=== PATIENT | female | born 1945 | race Caucasian/White ===

== ENCOUNTER 2024-03-27 06:33 | Inpatient (IN) | payer MEDICARE, OTHER, SELFPAY ==
[2024-03-26 22:02] VITALS: BP 107/55
[2024-03-26] MEDS: TYLENOL 650 MG PO (22:12)
[2024-03-26] MEDS: ZOFRAN ODT (ORALLY DISINTEGRATING) 4 MG PO (22:12)
[2024-03-26 22:27] LABS: % Basophils 0.3 % (0-2); % Immature Granulocytes 0.3 % (0-0.5); % Lymphocytes 7.4 % (20.5-51.1); % Monocytes 8.2 % (1.7-9.3); % Neutrophils 83.8 % (42.2-75.2); Absolute Lymphocytes 0.5 10^3/uL (1.2-3.4); Absolute Monocytes 0.6 10^3/uL (0.1-0.6); Absolute Neutrophils 6.1 10^3/uL (1.4-6.5); Hematocrit 40.1 % (37.0-47.0); Hemoglobin 14.2 g/dL (12.0-16.0); Mean Corp Hgb Conc. 35.4 g/dL (33.0-37.0); Mean Corpuscular Hgb 32.7 pg (27.0-31.0); Mean Corpuscular Volume 92.4 fL (81.0-99.0); Mean Platelet Volume 9.5 fL (7.4-10.4); Nucleated Red Blood Cells % 0 %; Platelet Count 169 10^3/uL (130-400); Red Blood Cell Count 4.34 10^6/uL (4.20-5.40); Red Cell Dist. Width 12.3 % (11.5-14.5); White Blood Cell Count 7.3 10^3/uL (4.8-10.8)
[2024-03-26 22:39] LABS: ALT (SGPT) 47 U/L (0-35); AST (SGOT) 62 U/L (14-36); Albumin 4.2 g/dl (3.5-5.0); Alkaline Phosphatase 146 U/L (38-126); Blood Urea Nitrogen 10 mg/dl (7-17); Calcium 9.2 mg/dl (8.4-10.2); Carbon Dioxide 24 mmol/L (22-30); Chloride 98 mmol/L (98-107); Glucose 137 mg/dl (70-99); Potassium 4.3 mmol/L (3.5-5.1); Sodium 132 mmol/L (135-145); Total Bilirubin 0.9 mg/dl (0.2-1.3); Total Protein 6.8 g/dl (6.3-8.2); eGFR > 60.00
[2024-03-26 22:40] LABS: Lactic Acid 2.5 mmol/L (0.7-2.0)
--- NOTE | 2024-03-27 01:17 | ED.GENMED ---
History of Present Illness
General
Chief Complaint: Flank Pain
Source: patient and spouse
Exam Limitations: none
Time Seen by Provider: 03/27/24 01:08
Nursing documentation reviewed up to this point in time: agreed with
History of Present Illness
History of Present Illness:
78-year-old female presents emergency department due to nausea, right-sided abdominal pain with radiation of the right flank. She was seen at urgent care in [facility] recently and started on Keflex. She notes she has started a cough
also. History of pyelonephritis.
Past History
Past History
ED Past Medical History: Hypercholesterolemia and Other (Osteoporosis)
ED Past Surgical History: Gynecological (Hysterectomy) and Other (Bilateral breast biopsies)
Social History
Tobacco: Non-smoker
Alcohol: Occasional
Drug: None
Personal:
Living: with family
Employment: Employed
Review of Systems
Review of Systems
Allergies reviewed?: Yes
All Other Systems: Not applicable
Constitutional: Reports fever
EENT: Reports no symptoms
Respiratory: Reports cough
Cardiac: Reports no symptoms
ABD/GI: Reports abdominal pain and nausea
: Reports flank pain
Musculoskeletal: Reports no symptoms
Skin: Reports no symptoms
Neurological: Reports no symptoms
Endocrine: Reports no symptoms
Hematologic/Lymphatic: Reports no symptoms
Psychiatric: Reports no symptoms
Phy Exam
Physical Exam
Physical Exam:
Physical Exam
General: Fever 101.1
Neck: supple. no meningeal signs. normal posterior pharynx
Heart: s1/s2 tachycardia, no murmur. equal radial
pulses.
HEENT: Pupils equal round reactive to light, EOMI
Lungs: no acute respiratory distress. clear bilaterally
Abdomen: normal bowel sounds. not tender. no CVAT
Neuro: alert and oriented. no focal neurological deficits cranial nerves II through XII intact
Skin: no rash
Psychiatric: well kept. interactive and cooperative
Extremities: no edema. no calf tenderness. negative homans. good distal pulses
Sepsis
Sepsis Screening
Sepsis Assessment: Sepsis
Sepsis Screen
Sepsis Screen: Sepsis
Date: 03/27/24
Time: 06:12
Course
Orders/Labs/Results
Orders:
Orders
03/26/24 22:07
Acetaminophen [Tylenol] 650 mg PO NOW STA
Ondansetron Orally Disint [Zofran Odt (Orally Disintegrating)] 4 mg PO NOW STA
03/26/24 22:14
Complete Blood Count/With Diff Urgent
Comprehensive Metabolic Panel Urgent
Lactic Acid Urgent
03/26/24 22:20
Urinalysis Reflex To Culture Urgent
Date Specimen was Collected: 03/26/24
Time Specimen was Collected: 22:20
03/27/24 01:16
CT Abd/pelvis W Iv Cont Urgent
Comment:
Reason For Exam: right flank pain, fever, recent UTI
03/27/24 01:17
IV Insert/Care/Rem.- Treatment PRN
0.9% Sodium Chloride 1000 ml [Nss] 1,000 ml IV BOLUS
03/27/24 02:06
COVID-19 Antigen Urgent
Source: Nasal Swab
Urine Microscopic Reflex Cult Urgent
Urine Culture Urgent
HENRRY Source: U
Specimen Description:
Date Specimen was Collected: 03/26/24
Time Specimen was Collected: 22:20
03/27/24 02:31
Diphenhydramine [Benadryl] 50 mg IV NOW STA
Hydrocortisone Sod Succinate [Solu-Cortef] 200 mg IV NOW STA
03/27/24 03:50
Acetaminophen [Tylenol] 650 mg PO NOW STA
03/27/24 05:08
0.9% Sodium Chloride 1000 ml [Nss] 1,000 ml IV BOLUS
CefTRIAXone [Rocephin] 1,000 mg IV NOW STA
Doxycycline [Vibramycin] 100 mg PO NOW STA
03/27/24 05:09
CR Chest - 2 Views Urgent
Comment:
Reason For Exam: cough, fever
03/27/24 05:33
Blood Culture Q30M
HENRRY Source: Blood/Venous
Specimen Description:
Blood Culture Q30M
HENRRY Source: Blood/Venous
Specimen Description:
Abnormal Lab Results
03/26/24 03/27/24
22:14 02:06
MCH 32.7 H pg
(27.0-31.0)
Absolute Lymphs (auto) 0.5 L 10^3/uL
(1.2-3.4)
Neutrophils % 83.8 H %
(42.2-75.2)
Lymphocytes % 7.4 L %
(20.5-51.1)
Sodium 132 L mmol/L
(135-145)
Glucose 137 H mg/dl
(70-99)
Lactic Acid 2.5 H mmol/L
(0.7-2.0)
AST 62 H U/L
(14-36)
ALT 47 H U/L
(0-35)
Alkaline Phosphatase 146 H U/L
(38-126)
Urine Ketones 1+ A
(Negative)
Ur Occult Blood Reflex 3+ A
(Negative)
Urine RBC >100 A /HPF
(0-2)
Urine Bacteria (Reflex) Moderate A
(Negative)
03/26/24 22:14
03/26/24 22:14
Vital Signs
Initial and Last Documented VS:
Initial Vital Signs
Temp Pulse Resp BP Pulse Ox
101.1 F H 101 20 107/55 97
03/26/24 22:02 03/26/24 22:02 03/26/24 22:02 03/26/24 22:02 03/26/24 22:02
Last Documented Vital Signs
Temp Pulse Resp BP Pulse Ox
100.0 F 101 20 132/53 95
03/27/24 03:43 03/26/24 22:02 03/26/24 22:02 03/27/24 03:00 03/27/24 03:45
MDM/Problems Addressed
Differential Diagnosis Includes:
UTI, pneumonia
MDM/Problems Addressed:
78-year-old female with pneumonia, current treatment for UTI. Admit to hospitalist for IV antibiotics. Lactate mildly elevated. IV fluids given.
*Radiology
Radiology exam reviewed: preliminary read by ED provider (Chest x-ray shows right middle lobe pneumonia) and radiology read reviewed (CT abdomen pelvis shows right middle lobe pneumonia)
*Pulse Oximetry
Patient hypoxic: no
*Critical Care Note
Total Time (30-74mins, 75-104mins- exclusive of procedures): Not Applicable
Patient Management
Social determinants of health affecting care: Living situation and Strong social support
Discussion with other providers: Hospitalist
Escalation/DeEscalation of care consider admission/obs:
Admission indicated
ED Attending Note
-
Portions of this chart may have been created with voice recognition software.� Occasional wrong word or��sound alike� substitutions may have occurred due to the inherent limitations of voice recognition software.
Discharge Plan
Departure
Patient Disposition: Admit
Date of Disposition: 03/27/24
Time of Disposition: 05:10
Admit to: Telemetry
Presentation/result/management discussed w/ accepting MD/DO: Hospitalist
Patient with high blood pressure during this ER visit?: Yes
Condition: Good
Discharge Problem:
Pneumonia involving right lung, Acute UTI
Prescriptions:
No Action
cyclobenzaprine 10 MG tablet
10 mg PO PRN PRN (Reason: pain)
esomeprazole magnesium [Nexium] 20 MG capsule,delayed release(DR/EC)
20 mg PO DAILY
eszopiclone [Lunesta] 3 MG tablet
3 mg PO DAILY
aspirin 81 MG tablet,delayed release (DR/EC)
325 mg PO DAILY
atorvastatin 80 MG tablet
40 mg PO QPM
Zetia 10 mg
10 mg PO 1XD
B12 1,000 mg
1,000 mg subcut (via wearable injectr)
Premarin
1 vaginal
Rx Instructions:
2 times a week
Referrals:
Leanna Abebe DO [Family Provider] -
Interventions
Interventions:
*Risk Screen - Suicide Last Done: 03/27/24 02:00
*General Assessment Last Done: 03/26/24 22:02
*Neglect/Abuse Screening Last Done: 03/27/24 02:00
ED- Fall Risk Assessment Last Done: 03/27/24 02:00
*ED COVID-19 Vaccine History Last Done: 03/27/24 02:00
TO-Ahwtym-Eupnbfbcoe Assessment Last Done: 03/27/24 02:00
ED-Female Genitourinary Assessment Last Done: 03/27/24 02:00
Discharge Date and Time
Print Language: THAI
[2024-03-27 01:59] VITALS: BMI 23.0
[2024-03-27 02:00] VITALS: BP 107/51
[2024-03-27] MEDS: NSS 1000 IV ×4 (02:12→19:29)
[2024-03-27 02:19] LABS: Urine Albumin Trace (Neg - Trace); Urine Bilirubin Negative (Negative); Urine Character Clear (Clear); Urine Color Yellow; Urine Glucose Negative (Negative); Urine Ketone 1+ (Negative); Urine Leukocyte Negative (Negative); Urine Nitrite Negative (Negative); Urine Occult Blood 3+ (Negative); Urine Urobilinogen Negative (Neg - 1+)
[2024-03-27 02:36] LABS: COVID-19 Antigen Negative (Negative)
[2024-03-27] MEDS: BENADRYL 50 MG IV (02:52)
[2024-03-27] MEDS: SOLU-CORTEF 200 MG IV (02:52)
[2024-03-27 02:57] LABS: Urine Amorphous Seen; Urine Mucus Few; Urine Red Blood Cell >100 /HPF (0-2); Urine Squamous Cell >30 /LPF (Few); Urine Urothelial Cell >30 /LPF (FEW)
[2024-03-27 02:58] LABS: Urine Bacteria Moderate (Negative)
[2024-03-27 03:00] VITALS: BP 132/53
[2024-03-27] MEDS: TYLENOL 650 MG PO ×3 (03:53→23:12)
[2024-03-27] MEDS: ROCEPHIN 1000 MG IV (05:35)
[2024-03-27] MEDS: VIBRAMYCIN 100 MG PO ×2 (05:35→19:30)
--- NOTE | 2024-03-27 06:27 | HPS.HSE ---
Family Physician
-
Family Physician: Leanna Abebe
Chief Complaint
-
Fever
History of Present Illness
Patient is a 78y F with PMH significant for hypertension, PFO and prior TIA who presents to ED complaining of fever. Patient states that she started to have fevers at home about 3 days ago. She also had dysuria and frequency. She went to an
Urgent Care and was prescribed Keflex for UTI. Patient states that her urinary symptoms resolved; however, her fevers persisted. Yesterday she developed a hacking cough. No dyspnea. No known sick contacts. Today she noted RUQ abdominal pain and
R flank pain. She also had nausea without emesis. Her fever at home was 103.
Patient presented to the ED for further evaluation and treatment.
Medical History
Past Medical History
Past Medical History: Reports Other
Additional Past Medical History:
Hypertension
Melanoma
PFO / Atrial Septal Aneurysm
Chronic Neck Pain / Headaches
Osteoporosis
Nephrolithiasis
Past Surgical History: Reports Other
Additional Past Surgical History:
Pyloric Stenosis Repair
Breast Biopsy x 2
Hysterectomy
Mohs Surgery
Social History
Tobacco: Non-smoker
Alcohol: None
Drug: None
Personal:
Living: With Family
Family History
Family History: Not pertinent
Allergies / Home Medications
Allergies reflects when Allergies were last updated in [facility].
Home Medications with original date entered in [facility]
Allergy/Medication List:
Allergies
Allergy/AdvReac Type Severity Reaction Status Date / Time
clarithromycin Allergy Hives Verified 03/26/24 22:02
propofol Allergy seizure Verified 03/26/24 22:02
anesthesia Allergy ARDS, Uncoded 03/26/24 22:02
seizures
Home Medications
cyclobenzaprine 10 mg tablet 10 mg PO PRN PRN pain 05/20/17
esomeprazole magnesium 20 mg capsule,delayed release (Nexium) 20 mg PO DAILY 05/20/17
eszopiclone 3 mg tablet (Lunesta) 3 mg PO DAILY 05/20/17
B12 1,000 mg subcut (via wearable injectr) MONTHLY 12/29/21
Premarin 1 dose vaginal Q3D 12/29/21
Zetia 10 mg PO 1XD 12/29/21
atorvastatin 80 mg tablet 40 mg PO QPM 12/29/21
apixaban 5 mg tablet (Eliquis) 5 mg PO BID 03/27/24
famotidine 20 mg tablet (Pepcid) 20 mg PO HS 03/27/24
teriparatide 20 mcg/dose (600 mcg/2.4 mL) subcutaneous pen injector (Forteo) 20 mcg SC DAILY 03/27/24
vibegron 75 mg tablet (Gemtesa) 75 mg PO DAILY 03/27/24
Review of Systems
-
History Source: Patient
A 12 point ROS was completed and negative except as noted: Yes
Constitutional: Reports Fever, Fatigue and Chills
EENT: Denies Sore Throat
Respiratory: Reports Cough; Denies Trouble Breathing
Cardiac: Denies Chest Pain or Palpitations
Abdomen/GI: Reports Abdominal Pain and Nausea; Denies Vomiting or Diarrhea
: Reports Dysuria, Frequency and Flank Pain
Musculoskeletal: Denies Joint Pain or Edema
Neurological: Denies Dizzy or Headache
Psych: Denies Depression or Anxiety
Physical Exam
Vital Signs
Vital Signs
Temp Pulse Resp BP Pulse Ox
100.0 F 101 20 132/53 95
03/27/24 03:43 03/26/24 22:02 03/26/24 22:02 03/27/24 03:00 03/27/24 03:45
Physical Exam
General: Other (78y F in no acute distress.)
HEENT: Moist mucous membranes and PERRLA
Respiratory: Clear; No Wheezes, Rales or Rhonchi
Cardiac: S1/S2 and Regular Rhythm; No Murmur
GI: Soft, Non Distended, Normal Bowel Sounds and Other (Pos RUQ tenderness.)
Musculoskeletal: No Clubbing, No Cyanosis and No Edema
Neuro: AO x 3
Laboratory Results
-
03/26/24 22:14
03/26/24 22:14
Laboratory Results
Lactic Acid 2.5 mmol/L (0.7-2.0) H 03/26/24 22:14
Total Bilirubin 0.9 mg/dl (0.2-1.3) 03/26/24 22:14
AST 62 U/L (14-36) H 03/26/24 22:14
ALT 47 U/L (0-35) H 03/26/24 22:14
Alkaline Phosphatase 146 U/L (38-126) H 03/26/24 22:14
Impression/Plan
-
A/P: Patient is a 78y F with PMH significant for HTN and prior TIAs who presents to ED complaining of fever x 3 days.
Sepsis
- Admit for further evaluation and treatment.
- Patient presents with fever, tachycardia, L shift and multiple potential sources of infection.
- ? UTI though urinary symptoms better after Keflex. CT without evidence of obstructing stone / pyelo.
- ? RML pneumonia - though this is more likely atelectasis. Patient does have cough since yesterday. COVID negative. Will add Flu.
- ? Biliary. RUQ pain and nausea with abnormal LFTs (hepatocellular). CT reportedly unremarkable. Check US for further evaluation.
- IVF support, antipyretics, etc.
- Abx with ceftriaxone and doxycycline for now.
- Follow-up culture data and adjust treatment as needed.
- Follow fever curve and monitor for any new / worsening symptoms.
PFO
Prior TIAs
- Stable. No new neurologic symptoms.
- Continue Eliquis.
GERD
- Stable. Continue acid-suppression regimen.
DVT Prophylaxis: SCDs
Code Status: Full
[2024-03-27 07:02] VITALS: BP 101/51
--- NOTE | 2024-03-27 07:30 | W.PN.HOSP.TC ---
Today's Communication/Plan
-
Continue antibiotics
Assessment / Plan
Assessment / Plan
Physical Exam
General: Not in acute distress
HEENT: Moist mucous membranes
Respiratory: Clear to Auscultation Bilaterally
Cardiac: S1/S2 and Regular Rhythm
GI: Soft, Non Distended, Normal Bowel Sounds
: No CVA tenderness. No suprapubic tenderness.
Musculoskeletal: No Cyanosis and No Edema
Neuro: AAO x 3
Assessment/Plan
Patient is a 78 y/o female with past medical history significant for hypertension and prior TIAs who presented complaining of fever x 3 days.
Sepsis
Fever
Lactic Acidosis - RESOLVED
Moderate right middle/lower lobe consolidation concerning for pneumonia. Atelectasis not excluded
- Patient presented with fever, tachycardia, L shift and multiple potential sources of infection.
- ? UTI though urinary symptoms better after Keflex started outpatient. CT without evidence of obstructing stone / pyelo.
- ? RML pneumonia - though this is more likely atelectasis. Patient does have cough since yesterday. COVID and Flu negative
- ? Biliary. RUQ pain and nausea with abnormal LFTs (hepatocellular). CT reportedly unremarkable. Abdominal US without any concerns/unremarkable.
- IVF support, antipyretics, etc.
- Abx with ceftriaxone and doxycycline for now.
- Follow blood and urinae cultures which were ordered at the time of admission
- Follow-up culture data and adjust treatment as needed.
- Follow fever curve and monitor for any new / worsening symptoms.
Microscopic Hematuria
- Due to recent UTI?
- Recheck UA outpatient
PFO
Prior TIAs
- Stable. No new neurologic symptoms.
- Continue Eliquis.
Small bilateral pleural effusions.
Several tiny bilateral nonobstructing renal calculi noted measuring up to 4 mm, no hydronephrosis on ultrasound
Several left-sided parapelvic renal cysts.
Benign left renal angiomyolipoma
Several sclerotic osseous lesions possibly benign bone islands in pelvis and vertebra on CT Imaging - mild blastic osseous metastatic disease cannot be excluded.
-Radiologist Dr. Dora Clemente spoke to patient and provider her (Dr. Clemente's) cell phone number, and she also faxed the report of this to patient's primary care provider for follow-up
GERD
- Stable. Continue acid-suppression regimen.
Mild diverticulosis
DVT Prophylaxis: SCDs. Eliquis.
Code Status: Full
Anticipated Discharge: 24 - 48 hours
Subjective/Interval History
-
Date of Service: March 27, 2024
Patient was seen and examined. She reported feeling better than when she came in.
Objective Data
-
Labs:
Laboratory Results
03/26/24
22:14
WBC 7.3
Hgb 14.2
Hct 40.1
Plt Count 169
Sodium 132 L
Potassium 4.3
Chloride 98
Carbon Dioxide 24
BUN 10
Creatinine 0.9
Glucose 137 H
Calcium 9.2
Total Bilirubin 0.9
AST 62 H
ALT 47 H
Alkaline Phosphatase 146 H
Vital Signs:
Vital Signs
Temp Pulse Resp BP Pulse Ox
98.7 F 71 16 101/51 94
03/27/24 07:02 03/27/24 07:02 03/27/24 07:02 03/27/24 07:02 03/27/24 07:02
[2024-03-27] MEDS: ELIQUIS 5 MG PO ×2 (10:11→19:30)
[2024-03-27] MEDS: PROTONIX 40 MG PO (10:12)
[2024-03-27 16:47] VITALS: BP 136/69; BMI 23.7
--- NOTE | 2024-03-27 16:58 | PTCARENOTE ---
1440 Pt received from ED via stretcher AAOX3. Ambulated to standing scale and then to room 339-1 with a steady gait. Pt oriented to staff, call light and environment. Personal items and call light within reach.
[2024-03-27] MEDS: ROBITUSSIN 200 MG PO ×2 (17:43→23:12)
[2024-03-27 18:31] LABS: Lactic Acid 0.9 mmol/L (0.7-2.0)
[2024-03-27 19:18] VITALS: BP 122/61
[2024-03-27] MEDS: PEPCID 20 MG PO (22:17)
[2024-03-27] MEDS: AMBIEN 10 MG PO (22:17)
[2024-03-27 22:37] VITALS: BP 135/66
[2024-03-28 03:54] VITALS: BP 108/55
[2024-03-28] MEDS: NSS 1000 IV (05:18)
[2024-03-28] MEDS: ROCEPHIN 1000 MG IV (05:18)
[2024-03-28 06:00] VITALS: BMI 22.9
[2024-03-28 07:45] VITALS: BP 137/69
[2024-03-28] MEDS: PROTONIX 40 MG PO (08:03)
[2024-03-28] MEDS: TYLENOL 650 MG PO ×3 (08:03→21:38)
[2024-03-28] MEDS: ELIQUIS 5 MG PO ×2 (08:03→21:33)
[2024-03-28] MEDS: VIBRAMYCIN 100 MG PO ×2 (08:03→21:33)
[2024-03-28] MEDS: ROBITUSSIN 200 MG PO ×3 (08:03→21:39)
[2024-03-28 08:28] LABS: ALT (SGPT) 33 U/L (0-35); AST (SGOT) 30 U/L (14-36); Alkaline Phosphatase 107 U/L (38-126); Blood Urea Nitrogen 9 mg/dl (7-17); Calcium 8.2 mg/dl (8.4-10.2); Carbon Dioxide 23 mmol/L (22-30); Chloride 107 mmol/L (98-107); Direct Bilirubin 0.2 mg/dl (0.0-0.4); Estimated Creatinine Clearance 47 ml/min; Glucose 97 mg/dl (70-99); Potassium 3.7 mmol/L (3.5-5.1); Sodium 137 mmol/L (135-145); Total Bilirubin 0.2 mg/dl (0.2-1.3); Total Protein 5.4 g/dl (6.3-8.2); eGFR > 60.00
[2024-03-28 08:31] LABS: Hematocrit 31.9 % (37.0-47.0); Hemoglobin 10.9 g/dL (12.0-16.0); Mean Corp Hgb Conc. 34.2 g/dL (33.0-37.0); Mean Corpuscular Hgb 32.7 pg (27.0-31.0); Mean Corpuscular Volume 95.8 fL (81.0-99.0); Mean Platelet Volume 9.8 fL (7.4-10.4); Platelet Count 133 10^3/uL (130-400); Red Blood Cell Count 3.33 10^6/uL (4.20-5.40); Red Cell Dist. Width 12.9 % (11.5-14.5); White Blood Cell Count 6.6 10^3/uL (4.8-10.8)
[2024-03-28 11:55] VITALS: BP 116/55
--- NOTE | 2024-03-28 13:01 | W.PN.HOSP.TC ---
Today's Communication/Plan
-
Coughing, but no fever, no WBC count
Antibiotic switched to oral
Hopefully patient will be good for discharge tomorrow
Assessment / Plan
Assessment / Plan
Physical Exam
General: Not in acute distress
HEENT: Moist mucous membranes
Respiratory: Clear to Auscultation Bilaterally
Cardiac: S1/S2 and Regular Rhythm
GI: Soft, Non Distended, Normal Bowel Sounds
: No CVA tenderness. No suprapubic tenderness.
Musculoskeletal: No Cyanosis and No Edema
Neuro: AAO x 3
Assessment/Plan
Patient is a 78 y/o female with past medical history significant for hypertension and prior TIAs who presented complaining of fever for 3 days.
Sepsis
Fever -- LAST FEVER RAFFI 1 EVENING
Lactic Acidosis - RESOLVED
Moderate right middle/lower lobe consolidation concerning for pneumonia. Atelectasis not excluded
UTI -- recent outpatient UA noted with pansensitive E. coli
- Patient presented with fever, tachycardia, L shift and multiple potential sources of infection.
- UTI though urinary symptoms better after Keflex started outpatient (see below). CT without evidence of obstructing stone / pyelo.
- RML pneumonia - though this is more likely atelectasis. Patient does have cough since yesterday. COVID and Flu negative
- ? Biliary. RUQ pain and nausea with abnormal LFTs (hepatocellular). CT reportedly unremarkable. Abdominal US without any concerns/unremarkable.
- IVF support, antipyretics, etc.
- Continue Doxycycline. Switch Ceftriaxone to Cefdinir 300 mg Q12H.
- Blood cultures with NGTD. Urine culture with no growth.
Microscopic Hematuria
- Due to recent UTI?
- Recheck UA outpatient
- Outpatient UA noted with pansensitive E. coli UTI as above
Constipation
- Bowel regimen with Miralax and Senna for now
PFO
Prior TIAs
- Stable. No new neurologic symptoms.
- Continue Eliquis.
Small bilateral pleural effusions.
Several tiny bilateral nonobstructing renal calculi noted measuring up to 4 mm, no hydronephrosis on ultrasound
Several left-sided parapelvic renal cysts.
Benign left renal angiomyolipoma
Several sclerotic osseous lesions possibly benign bone islands in pelvis and vertebra on CT Imaging - mild blastic osseous metastatic disease cannot be excluded.
-Radiologist Dr. Dora Clemente spoke to patient and provider her (Dr. Clemente's) cell phone number, and she also faxed the report of this to patient's primary care provider for follow-up
GERD
- Stable. Continue acid-suppression regimen.
Mild diverticulosis
DVT Prophylaxis: SCDs. Eliquis.
Code Status: Full
Anticipated Discharge: Within 24 hours
Subjective/Interval History
-
Date of Service: March 28, 2024
Patient was seen and examined. She reported more cough today, denied any chest pain or significant shortness of breath.
Objective Data
-
Labs:
Laboratory Results
03/28/24
07:26
WBC 6.6
Hgb 10.9 L D
Hct 31.9 L
Plt Count 133 D
Sodium 137
Potassium 3.7
Chloride 107
Carbon Dioxide 23
BUN 9
Creatinine 0.8
Glucose 97
Calcium 8.2 L
Total Bilirubin 0.2
AST 30
ALT 33
Alkaline Phosphatase 107
Vital Signs:
Vital Signs
Temp Pulse Resp BP Pulse Ox
98.5 F 82 16 116/55 98
03/28/24 11:55 03/28/24 11:55 03/28/24 11:55 03/28/24 11:55 03/28/24 07:45
I&O
03/27/24 03/28/24 03/29/24
06:59 06:59 06:59
Intake Total 720 / 720
Balance 720 / 720
[2024-03-28] MEDS: NSS IV (15:36)
[2024-03-28 15:45] VITALS: BP 123/64
--- NOTE | 2024-03-28 17:03 | CM ---
Alert awake oriented patient who lives with her Dusty who lives in a 2 story home with 2 steps to enter and bed bathroom on first floor.. She is independent in driving and in all activities of daily living.Offered VN she declined.
No adaptive devices
Never had VN/SNF
Pharmacy [facility] on [address] [place]
PCP Dr Abebe
PLAN Home no needs
[2024-03-28 19:18] VITALS: BP 128/62
[2024-03-28] MEDS: OMNICEF 300 MG PO (21:33)
[2024-03-28] MEDS: AMBIEN 10 MG PO (21:33)
[2024-03-28] MEDS: PEPCID 20 MG PO (21:34)
[2024-03-28] MEDS: SENNA SYRUP 8.8 MG PO (21:34)
[2024-03-28 23:47] VITALS: BP 103/52
[2024-03-29] MEDS: ROBITUSSIN 200 MG PO ×2 (01:56→09:49)
[2024-03-29] MEDS: TYLENOL 650 MG PO ×2 (04:39→09:49)
[2024-03-29 06:00] VITALS: BMI 23.0
[2024-03-29 07:00] LABS: Hematocrit 29.5 % (37.0-47.0); Hemoglobin 10.1 g/dL (12.0-16.0); Mean Corp Hgb Conc. 34.2 g/dL (33.0-37.0); Mean Corpuscular Hgb 32.8 pg (27.0-31.0); Mean Corpuscular Volume 95.8 fL (81.0-99.0); Mean Platelet Volume 10.1 fL (7.4-10.4); Platelet Count 154 10^3/uL (130-400); Red Blood Cell Count 3.08 10^6/uL (4.20-5.40); Red Cell Dist. Width 12.8 % (11.5-14.5); White Blood Cell Count 6.4 10^3/uL (4.8-10.8)
[2024-03-29 07:37] LABS: Blood Urea Nitrogen 7 mg/dl (7-17); Calcium 8.5 mg/dl (8.4-10.2); Carbon Dioxide 24 mmol/L (22-30); Chloride 103 mmol/L (98-107); Estimated Creatinine Clearance 54 ml/min; Glucose 101 mg/dl (70-99); Potassium 3.9 mmol/L (3.5-5.1); Sodium 135 mmol/L (135-145); eGFR > 60.00
[2024-03-29 07:56] VITALS: BP 95/53
[2024-03-29 09:08] VITALS: BP 138/72
[2024-03-29] MEDS: OMNICEF 300 MG PO (09:40)
[2024-03-29] MEDS: VIBRAMYCIN 100 MG PO (09:40)
[2024-03-29] MEDS: PROTONIX 40 MG PO (09:41)
[2024-03-29] MEDS: ELIQUIS 5 MG PO (09:42)
[2024-03-29 09:53] LABS: ALT (SGPT) 80 U/L (0-35); AST (SGOT) 66 U/L (14-36); Direct Bilirubin 0.1 mg/dl (0.0-0.4); Iron 44 ug/dl (37-170); Total Bilirubin 0.6 mg/dl (0.2-1.3)
[2024-03-29 09:58] LABS: Percent Saturation 24 % (20-50); Total Iron Binding Capacity 183 ug/dl (265-497)
[2024-03-29 10:37] LABS: Vitamin B12 922 pg/ml (239-931)
[2024-03-29 12:05] VITALS: BP 126/68; PULSE 75; O2SAT 98
[2024-03-29 12:07] VITALS: BP 126/68
--- NOTE | 2024-03-29 13:48 | W.PN.HOSP.TC ---
Today's Communication/Plan
-
Discharge today
Assessment / Plan
Assessment / Plan
Physical Exam
General: Not in acute distress
HEENT: Moist mucous membranes
Respiratory: Clear to Auscultation Bilaterally
Cardiac: S1/S2 and Regular Rhythm
GI: Soft, Non Distended, Normal Bowel Sounds
: No CVA tenderness. No suprapubic tenderness.
Musculoskeletal: No Cyanosis and No Edema
Neuro: AAO x 3
Assessment/Plan
Patient is a 78 y/o female with past medical history significant for hypertension and prior TIAs who presented complaining of fever for 3 days.
Sepsis
Fever -- LAST FEVER RAFFI 1 EVENING
Lactic Acidosis - RESOLVED
Moderate right middle/lower lobe consolidation concerning for pneumonia. Atelectasis not excluded
UTI -- recent outpatient UA noted with pansensitive E. coli
- Patient presented with fever, tachycardia, L shift and multiple potential sources of infection.
- UTI though urinary symptoms better after Keflex started outpatient (see below). CT without evidence of obstructing stone / pyelo.
- RML pneumonia - though this is more likely atelectasis, with cough. COVID and Flu negative
- ? Biliary. RUQ pain and nausea with abnormal LFTs (hepatocellular). CT reportedly unremarkable. Abdominal US without any concerns/unremarkable.
- IVF support, antipyretics, etc.
- Continue Doxycycline. Switched Ceftriaxone to Cefdinir 300 mg Q12H.
- Blood cultures with NGTD. Urine culture with no growth.
Normocytic Anemia
-Iron studies with no MIRIAN, Vitamin B12 within normal limits, bilirubin normal
-Recheck CBC with outpatient PCP in 3 to 4 days
Microscopic Hematuria
- Due to recent UTI?
- Recheck UA outpatient
- Outpatient UA noted with pansensitive E. coli UTI as above
Constipation
- Bowel regimen with Miralax and Senna
PFO
Prior TIAs
- Stable. No new neurologic symptoms.
- Continue Eliquis.
Small bilateral pleural effusions.
Several tiny bilateral nonobstructing renal calculi noted measuring up to 4 mm, no hydronephrosis on ultrasound
Several left-sided parapelvic renal cysts.
Benign left renal angiomyolipoma
Several sclerotic osseous lesions possibly benign bone islands in pelvis and vertebra on CT Imaging - mild blastic osseous metastatic disease cannot be excluded.
-Radiologist Dr. Dora Clemente spoke to patient and provider her (Dr. Clemente's) cell phone number, and she also faxed the report of this to patient's primary care provider for follow-up
GERD
- Stable. Continue acid-suppression regimen.
Mild diverticulosis
DVT Prophylaxis: SCDs. Eliquis.
Code Status: Full
More than 30 minutes spent in discharge including
Final examination of the patient
Summarizing hospital stay
Instructions for continuing care to all relevant caregivers
Preparation of discharge records, prescriptions, and referral forms
Total time spent (in minutes): 35
Anticipated Discharge: Today
Subjective/Interval History
-
Date of Service: March 29, 2024
Patient was seen and examined. She reported feeling better, denied any symptoms or complaints.
Objective Data
-
Labs:
Laboratory Results
03/29/24
06:17
WBC 6.4
Hgb 10.1 L
Hct 29.5 L
Plt Count 154
Sodium 135
Potassium 3.9
Chloride 103
Carbon Dioxide 24
BUN 7
Creatinine 0.7
Glucose 101 H
Calcium 8.5
Total Bilirubin 0.6
AST 66 H
ALT 80 H
Vital Signs:
Vital Signs
Temp Pulse Resp BP Pulse Ox
98.0 F 75 20 126/68 94
03/29/24 12:07 03/29/24 12:07 03/29/24 12:07 03/29/24 12:07 03/29/24 12:07
I&O
03/28/24 03/29/24 03/30/24
06:59 06:59 06:59
Intake Total 720 / 720 2400 / 2400
Balance 720 / 720 2400 / 2400
--- NOTE | 2024-03-29 15:34 | W.DCSUMMARY ---
Discharge Summary
Discharge Data
Date of Admission: 03/27/24
Date of Discharge: 03/29/24
Total time spent discharging patient (in min): 35
-
Pending Results: No
Hospital Course
78 y/o female who presented with a fever, as well as dysuria and urinary frequency. Patient was original started on Keflex for UTI. Patient was continued on antibiotics for pneumonia and urinary tract infection and felt much better. Her lactic
acidosis resolved. Her fever resolved. She was feeling much better and stable for discharge.
Discharge Plan
-
Patient Disposition: Home (Routine Discharge)
Discharge Diagnosis/Procedures: Several sclerotic osseous lesions possibly benign bone islands in pelvis and vertebra on CT Imaging - mild blastic osseous metastatic disease cannot be excluded (cancer spots on the bone cannot be excluded)
Sepsis
Fever -- RESOLVED
Lactic Acidosis - RESOLVED
Moderate right middle/lower lobe consolidation concerning for pneumonia. Atelectasis not excluded
UTI -- recent outpatient urine cultures noted with mera-sensitive E. coli
Several tiny bilateral non-obstructing renal calculi
Left renal angiomyolipoma
Normocytic Anemia
Microscopic Hematuria
Constipation
PFO
Prior TIAs
Small bilateral pleural effusions
Several tiny bilateral non-obstructing renal calculi noted measuring up to 4 mm, no hydronephrosis on ultrasound
Several left-sided parapelvic renal cysts.
Benign left renal angiomyolipoma
Gastroesophageal Reflux Disease
Mild diverticulosis
CT Abdomen Pelvis (as per radiologist's report)
'IMPRESSION: No acute urinary pathology identified.
Small bilateral pleural effusions.
Moderate right lower lobe consolidation concerning for pneumonia. Atelectasis not excluded
Several left-sided parapelvic renal cysts.
Benign left renal angiomyolipoma
Mild diverticulosis
Several sclerotic osseous lesions possibly benign bone islands. However, mild blastic osseous metastatic disease cannot be excluded. Clinical and laboratory correlation recommended as well as a nonurgent bone scan.'
Blood Work: Check urinalysis (to check for hematuria), CBC, CMP and Magnesium with outpatient primary care physician in 3 to 4 days.
Activity Restrictions/Additional Instructions:
Radiologist Dr. Dora Clemente spoke to you and provided you her (Dr. Clemente's) cell phone number, and she also faxed the report of the possible malignancy/cancer (the possible cancer spots on bone) to your primary care provider for follow-up --
IT IS EXTREMELY IMPORTANT THAT YOU FOLLOW-UP CLOSELY ON THIS WITH YOUR PRIMARY CARE PROVIDER; YOU MAY NEED A REFERRAL TO AN ONCOLOGIST
Referrals:
Leanna Abebe, DO [Family Provider] - in less than 1 week
Additional Discharge Medication Instructions: Cefdinir, Doxycycline, Polyethylene Glycol, and Sennosides are new medications.
Prescriptions:
New
polyethylene glycol 3350 17 gram Powder In Packet
17 g PO DAILY Qty: 30 1RF
cefdinir 300 mg Capsule
300 mg PO Q12 Qty: 9 0RF
sennosides 8.8 mg/5 mL Syrup
8.8 mg PO HS Qty: 120 1RF
doxycycline hyclate 100 mg Capsule
100 mg PO Q12 Qty: 9 0RF
Continued
esomeprazole magnesium [Nexium] 20 MG capsule,delayed release(DR/EC)
20 mg PO DAILY
eszopiclone [Lunesta] 3 MG tablet
3 mg PO HS
Patient Comments:
03/28/24: filled eszopiclone 3mg tablets - #90/90 day supply on 02/18/24 at [facility] #[id number]
famotidine [Pepcid] 20 mg Tablet
20 mg PO HS
teriparatide [Forteo] 20 mcg/dose (600mcg/2.4mL) Pen Injector
20 mcg SC DAILY
Eliquis 5 mg Tablet
5 mg PO BID
Gemtesa 75 mg Tablet
37.5 mg PO DAILY
cyclobenzaprine 10 mg tablet
10 mg PO TIDPRN PRN (Reason: neck pain)
atorvastatin 40 mg tablet
40 mg PO QPM
cyanocobalamin (vitamin B-12) 1,000 mcg/mL solution
1,000 mcg SC MONTHLY
Premarin 0.625 mg/gram cream
1 applic vaginal TUTH
ezetimibe 10 mg tablet
10 mg PO HS
Discharge Orders:
Discharge Patient (As Directed); Ordered 03/29/24
Ordered By: John Shelton
Discharge Date and Time
Discharge Date/Time: 03/29/24 16:15
Print Language: IRISH
--- NOTE | 2024-03-29 15:42 | CM ---
Met with patient at bedside; here to transport home
Plan: Discharge to home; no needs
[2024-03-29 16:17] VITALS: BP 118/63
== END 2024-03-29 16:15 | disposition home or self-care (01) | DRG 871 ==
LOC: 3 WEST ACU 06:33
PROVIDERS: Student in an Organized Health Care Education/Training Program; ADMITTING PHYSICIAN Hospitalist; ATTENDING PHYSICIAN Hospitalist; EMERGENCY PHYSICIAN Emergency Medicine; FAMILY PHYSICIAN Family Medicine
DX: A41.9 Sepsis, unspecified organism (principal); J18.9 Pneumonia, unspecified organism; J98.11 Atelectasis; Q21.12 Patent foramen ovale; I25.3 Aneurysm of heart; N39.0 Urinary tract infection, site not specified; E87.20 Acidosis, unspecified; Z86.73 Personal history of transient ischemic attack (TIA), and cerebral infarction without residual deficits; I10 Essential (primary) hypertension; Z11.52 Encounter for screening for COVID-19; Z85.820 Personal history of malignant melanoma of skin; G89.29 Other chronic pain; M81.0 Age-related osteoporosis without current pathological fracture; N20.0 Calculus of kidney; Z79.01 Long term (current) use of anticoagulants; Z90.710 Acquired absence of both cervix and uterus; E78.00 Pure hypercholesterolemia, unspecified; K21.9 Gastro-esophageal reflux disease without esophagitis; C80.1 Malignant (primary) neoplasm, unspecified
CPT/HCPCS: 71046; 74177; 76700; 80048; 80053; 81003; 81015; 82247; 82248; 82607; 82728; 83540; 83550; 83605; 84450; 84460; 85025; 85027; 86008; 87040; 87086; 87502; 87811; 96361; 96374; 96375; 97161; 99285; Q9967

== ENCOUNTER 2024-09-25 06:15 | Day surgery (SDC) | payer MEDICARE, OTHER, SELFPAY ==
[2024-09-25] VITALS (18 sets, daily range): BP systolic 72–148; BP diastolic 35–76; BMI 22.5
== END 2024-09-25 11:40 | disposition home or self-care (01) ==
LOC: SDS 06:15
PROVIDERS: ATTENDING PHYSICIAN Internal Medicine Gastroenterology
DX: Z12.11 Encounter for screening for malignant neoplasm of colon (principal); K57.30 Diverticulosis of large intestine without perforation or abscess without bleeding; K64.8 Other hemorrhoids; K22.89 Other specified disease of esophagus; K44.9 Diaphragmatic hernia without obstruction or gangrene; K31.89 Other diseases of stomach and duodenum; Z86.0100 Personal history of colon polyps, unspecified
CPT/HCPCS: 43239; G0105; 88305; 88342